=== PATIENT | female | born 1995 | race Caucasian/White ===

== ENCOUNTER → 2017-05-07 | Emergency (ER) | payer OTHER ==
[~2017-05-07] VITALS: Ht 165.1 cm; Wt 61.7 kg
[~2017-05-07] MED LIST: CIPRO500 MG PO; TUSICOF LIQUID120 ML
== END | disposition home or self-care (01) ==
LOC: ER 17:56
DX: N93.8 Other specified abnormal uterine and vaginal bleeding (principal); R31.9 Hematuria, unspecified; R10.2 Pelvic and perineal pain; N39.0 Urinary tract infection, site not specified

== ENCOUNTER 2018-08-29 12:47 | Emergency (ER) | payer OTHER ==
[~2018-08-29] VITALS: Ht 167.6 cm; Wt 63.5 kg
[2018-08-29] MEDS ORDERED: CEFADROXIL500 MG/5 M PO (19:15)
[2018-08-29] MEDS ORDERED: INTESTINEX680 M1 PO (19:15)
== END 2018-08-29 19:33 | disposition home or self-care (01) ==
LOC: ER 12:47
DX: B96.0 Mycoplasma pneumoniae [M. pneumoniae] as the cause of diseases classified elsewhere (principal); R31.0 Gross hematuria; J02.8 Acute pharyngitis due to other specified organisms; R50.9 Fever, unspecified

== ENCOUNTER 2021-06-26 17:15 | Emergency (ER) | payer OTHER ==
[~2021-06-26] VITALS: Ht 167.6 cm; Wt 63.5 kg
[~2021-06-26 17:15] MED LIST changes: +CEFADROXIL500 MG/5 M PO; +INTESTINEX680 M1 PO
[2021-06-26] MEDS ORDERED: AQUAPHOR HEALIN50 GM TOP (21:33)
== END 2021-06-26 22:07 | disposition home or self-care (01) ==
LOC: ER 17:15
DX: S20.112A Abrasion of breast, left breast, initial encounter (principal); W22.03XA Walked into furniture, initial encounter; Y93.9 Activity, unspecified; Y92.019 Unspecified place in single-family (private) house as the place of occurrence of the external cause

== ENCOUNTER 2021-08-05 09:10 | Emergency (ER) | payer OTHER ==
[~2021-08-05] VITALS: Ht 165.1 cm; Wt 68.0 kg
[~2021-08-05 09:10] MED LIST changes: +AQUAPHOR HEALIN50 GM TOP
[2021-08-05] MEDS ORDERED: KETO10TA2 PO (14:00)
[2021-08-05] MEDS ORDERED: NORFLEX100MG PO (14:00)
== END 2021-08-05 14:06 | disposition home or self-care (01) ==
LOC: ER 09:10
DX: R07.0 Pain in throat (principal)

== ENCOUNTER 2022-11-14 06:25 | Emergency (ER) | payer OTHER ==
[~2022-11-14] VITALS: Ht 167.6 cm; Wt 56.7 kg
[~2022-11-14 06:25] MED LIST changes: +KETO10TA2 PO; +NORFLEX100MG PO
== END 2022-11-14 11:46 | disposition home or self-care (01) ==
LOC: ER 06:25
PROVIDERS: General Practice
DX: B34.9 Viral infection, unspecified (principal); Z20.822 Contact with and (suspected) exposure to COVID-19; Z88.8 Allergy status to other drugs, medicaments and biological substances

== ENCOUNTER 2023-04-02 10:09 | Emergency (ER) | payer OTHER ==
[~2023-04-02] VITALS: Ht 165.1 cm; Wt 57.6 kg
[2023-04-02 13:42] LABS: URINE APPEARANCE Clear; URINE BILIRRUBIN Negative (NEGATIVE); URINE BLOOD Moderate; URINE COLOR Yellow; URINE GLUCOSE Negative (NEGATIVE); URINE LEUKOCYTE Negative; URINE NITRATE Negative; URINE PROTEIN Negative (NEGATIVE); URINE UROBILINOGEN 0.2 E.U./dl
[2023-04-02 13:43] LABS: HEMOGLOBIN 14.5 g/dL (12.0-15.00); MEAN CELL VOLUME 84.2 fL (80.00-100.00); MEAN CORPUSCULAR HGB CONC 34.5 g/dl (32.0-36.0); PLATELET COUNT 220 K/uL (150-450); RED BLOOD COUNT 4.99 M/uL (4.00-6.00); RED CELL DISTRIBUTION WIDTH 13.5 % (11.5-14.5); URINE BACTERIA 561.7 uL (0.0-1933); URINE EPITHELIAL CELLS 8.6 uL (0.0-38.8); URINE RBC 105.6 uL (0.0-20.8); URINE WBC 1.8 uL (0.0-23.2)
[2023-04-02 14:13] LABS: ALBUMIN 4.1 gm/dL (3.4-5.0); BILIRUBIN TOTAL 0.33 mg/dL (0.3-1.2); CALCIUM 9.1 mg/dL (8.5-10.1); CREATININE SERUM 0.68 mg/dL (0.55-1.02); GFR 103.03; GLOBULINA 4.3 G/DL (2.4-3.5); POTASSIUM 3.84 mEq/L (3.5-5.1); TOTAL PROTEIN 8.4 gm/dL (6.4-8.2)
== END 2023-04-02 16:51 | disposition home or self-care (01) ==
LOC: ER 10:09
PROVIDERS: Emergency Medicine
DX: B34.8 Other viral infections of unspecified site (principal); Z20.822 Contact with and (suspected) exposure to COVID-19

== ENCOUNTER 2023-04-26 12:54 | Emergency (ER) | payer OTHER ==
[~2023-04-26] VITALS: Ht 165.1 cm; Wt 56.7 kg
[2023-04-26 15:10] LABS: HEMATOCRIT 40.2 % (36.0-45.00); HEMOGLOBIN 13.8 g/dL (12.0-15.00); MEAN CELL VOLUME 86.2 fL (80.00-100.00); MEAN CORPUSCULAR HEMOGLOBIN 29.7 pg (27.00-32.0); MEAN CORPUSCULAR HGB CONC 34.4 g/dl (32.0-36.0); PLATELET COUNT 254 K/uL (150-450); RED BLOOD COUNT 4.66 M/uL (4.00-6.00); RED CELL DISTRIBUTION WIDTH 13.6 % (11.5-14.5)
[2023-04-26] MEDS ORDERED: IBUPROFEN600 MG PO (15:32)
== END 2023-04-26 15:50 | disposition home or self-care (01) ==
LOC: ER 12:55
PROVIDERS: General Practice
DX: K08.89 Other specified disorders of teeth and supporting structures (principal); Z88.8 Allergy status to other drugs, medicaments and biological substances